=== PATIENT | female | born 1945 | race Caucasian/White ===

== ENCOUNTER 2017-04-15 13:56 | Emergency (ER) | payer BC ==
[2017-04-15 14:22] VITALS: BP 136/68
--- NOTE | 2017-04-15 14:52 | UC ---
Respiratory Complaint HPI - HPI Summary HPI Summary: 71 year old with worsening productive cough for 8 days. Traveling from [place] to [place]. No SOB. Concern for bronchitis. Also increased urinary freq the past day. No burning. No fever. No CP. - History of Current Complaint Chief Complaint: UCRespiratory Stated Complaint: CHEST CONGESTION,THROAT COMPLAINT Time Seen by Provider: 04/15/17 14:33 Hx Obtained From: Patient Onset/Duration: Gradual Onset Timing: Constant Severity Initially: Mild Severity Currently: Moderate Character: Cough: Productive Aggravating Factors: Exertion Alleviating Factors: Nothing Associated Signs And Symptoms: Positive: Wheezing, URI, Nasal Congestion, Sinus Discomfort - Allergies/Home Medications Allergies/Adverse Reactions: Allergies Allergy/AdvReac Type Severity Reaction Status Date / Time Sulfa Antibiotics Allergy Unknown rash, Verified 04/15/17 14:07 throat closes Home Medications: Home Medications Aspirin [Aspirin 81 MG TAB] 81 mg PO DAILY 04/15/17 [History Confirmed 04/15/17] FLUoxetine CAP* [Prozac CAP*] 40 mg PO DAILY 04/15/17 [History Confirmed ] Hydrochlorothiazide TAB* [Hydrodiuril TAB*] 25 mg PO DAILY 04/15/17 [History Confirmed 04/15/17] Statin ? Name 1 tab PO DAILY 04/15/17 [History] buPROPion TAB* [Wellbutrin TAB*] 150 mg PO DAILY 04/15/17 [History Confirmed ] PMH/Surg Hx/FS Hx/Imm Hx Previously Healthy: Yes Endocrine History: Dyslipidemia Cardiovascular History: Hypertension Psychological History: Anxiety - Surgical History Surgical History: Yes Surgery Procedure, Year, and Place: BILATERAL KNEE REPLACEMENT. - Family History Known Family History: Negative: Cardiac Disease - Social History Occupation: Retired Lives: With Family Alcohol Use: Weekly Alcohol Amount: 3 GLASSES OF WINE PER WEEK Substance Use Type: None Smoking Status (MU): Former Smoker Type: Cigarettes When Did the Patient Quit Smoking/Using Tobacco: 1981 Review of Systems Respiratory: Cough Genitourinary: Frequency Is Patient Immunocompromised?: No All Other Systems Reviewed And Are Negative: Yes Physical Exam Triage Information Reviewed: Yes Appearance: Well-Appearing, No Pain Distress, Well-Nourished Vital Signs: Initial Vital Signs Temp 97.9 F 04/15/17 14:10 Pulse 65 10/19/17 14:10 Resp 20 04/15/17 14:10 BP 136/68 04/15/17 14:10 Pulse Ox 97 04/15/17 14:10 Vital Signs Reviewed: Yes Eye Exam: Normal ENT Exam: Normal Dental Exam: Normal Neck exam: Normal Neck: Positive: 1 Respiratory Exam: Normal Respiratory: Positive: Chest non-tender, No respiratory distress, No accessory muscle use, Wheezing - LLL mild expiratory. Negative: Respiratory distress, Crackles, Rhonchi, Stridor Cardiovascular Exam: Normal Abdominal Exam: Normal Abdomen Description: Positive: Nontender. Negative: CVA Tenderness (R), CVA Tenderness (L) Musculoskeletal Exam: Normal Neurological Exam: Normal Psychological Exam: Normal Skin Exam: Normal UC Diagnostic Evaluation - Laboratory O2 Sat by Pulse Oximetry: 97 Respiratory Course/Dx - Differential Dx/Diagnosis Differential Diagnosis/HQI/PQRI: Bronchitis, Laryngitis, Lower Resp Infection Provider Diagnoses: Bronchitis Discharge - Discharge Plan Condition: Good Disposition: HOME Prescriptions: Cefuroxime Axetil [Ceftin 500 MG TAB] 500 mg PO BID #20 tab Patient Education Materials: Acute Bronchitis (ED)
== END 2017-04-15 15:01 | disposition home or self-care (01) ==
LOC: UCCORT 13:56
DX: J40 Bronchitis, not specified as acute or chronic (principal); Z88.2 Allergy status to sulfonamides; E78.5 Hyperlipidemia, unspecified; I10 Essential (primary) hypertension; Z87.891 Personal history of nicotine dependence
CPT/HCPCS: 81003; 99202; G0463